=== PATIENT | male | born 1965 | race African-American/Black ===

== ENCOUNTER 2020-06-12 18:46 | Emergency (ER) | payer MEDICAID, OTHER ==
[~2020-06-12] VITALS: Ht 175.3 cm; Wt 68.0 kg
[~2020-06-12 18:46] MED LIST: DILANTIN; FLOMAX; KEPPRA; [UNRECOGNIZED DRUG - REMARK]
[2020-06-12] MEDS ORDERED: KETOROLAC 30MG/ML VIAL IV ONE (19:30)
[2020-06-12 20:05] LABS: CHLORIDE 111 mEq/L (98-107)
[2020-06-12 20:06] LABS: BASOPHILS % 0.9 % (0.0-2.0); EOSINOPHILS % 2.3 % (0.0-5.0); HEMATOCRIT. 37.7 % (42.0-52.0); HEMOGLOBIN. 13.1 g/dL (14.0-18.0); LYMPHOCYTES % 28.8 % (20.0-50.0); MEAN CORPUSCULAR HEMOGLOBIN 31.7 pg (28.0-32.0); MEAN CORPUSCULAR VOLUME 91.3 fL (80.0-94.0); MEAN PLATELET VOLUME 8.4 fl (7.4-10.4); MONOCYTES % 7.1 % (2.0-8.0); NEUTROPHILS % 60.9 % (40.0-76.0); PLATELET 180 x1000/uL (130-400); RED BLOOD CELL COUNT 4.13 mill/uL (4.7-6.1); RED CELL DISTRIBUTION WIDTH 13.3 % (11.6-14.6)
[2020-06-12 23:17] VITALS: BP 117/78
== END 2020-06-12 23:28 | disposition home or self-care (01) ==
LOC: ER 18:46
DX: R07.89 Other chest pain (principal); R89.2 Abnormal level of other drugs, medicaments and biological substances in specimens from other organs, systems and tissues; Z86.59 Personal history of other mental and behavioral disorders
CPT/HCPCS: 36415; 71045; 80053; 80185; 84484; 85025; 93005; 96374; 99285; J1885